=== PATIENT | male | born 1985 | race African-American/Black ===

== ENCOUNTER 2020-10-02 06:24 | Emergency (ER) | payer SELFPAY ==
[~2020-10-02] VITALS: Ht 180.3 cm; Wt 71.4 kg
[2020-10-02 06:25] VITALS: BP 121/57
--- NOTE | 2020-10-02 06:54 | NUR ---
REPORT RECEIVED FROM AILEEN GOMEZ FOR TRANSFER OF PATIENT CARE.
[2020-10-02] MEDS ORDERED: CEFTRIAXONE PMX 1GM/50ML 50 ML ONE (06:56)
[2020-10-02] MEDS ORDERED: CEFTRIAXONE PMX 1GM/50ML 50 ML IVPB ONE (07:00)
--- NOTE | 2020-10-02 07:06 | NUR ---
FIRST CONTACT WITH PATIENT: 24 GAUGE IV STARTED RIGHT FA, MONET STACY. PATIENT RESTING IN GURNY ON PHONE, NADN, CALL LIGHT WITHIN REACH.
--- NOTE | 2020-10-02 08:35 | NUR ---
Patient given discharge instructions and prescription and they have confirmed that they understand the instructions. All patient belongings gathered and taken with patient. Patient stable and ambulatory with steady gait from ED to private vehicle.
== END 2020-10-02 08:36 | disposition home or self-care (01) ==
LOC: ED 08:20
DX: L03.114 Cellulitis of left upper limb (principal); M79.642 Pain in left hand; M79.89 Other specified soft tissue disorders; F17.200 Nicotine dependence, unspecified, uncomplicated
CPT/HCPCS: 73130; 96365; 99284; J0696